=== PATIENT | female | born 1995 | race Caucasian/White ===

== ENCOUNTER → 2017-05-30 14:54 | Outpatient (CLI) | payer MEDICAID, SELFPAY ==
[2017-06-02 13:01] LABS: HPV Reflexed? NOT INDICATED
== END ==
PROVIDERS: Visit Provider Obstetrics & Gynecology
DX: Z12.4 Encounter for screening for malignant neoplasm of cervix (principal)
CPT/HCPCS: 88175; G0145

== ENCOUNTER → 2018-12-19 15:15 | Outpatient (CLI) | payer MEDICAID, SELFPAY ==
[2014-10-08 20:22] VITALS: BMI 18.4
[2018-12-19 17:28] LABS: Chlamydia Trachomatis by PCR Negative (Negative); Neisserai gonorrhoeae by PCR Negative (Negative); Probe Check PASS; Sample Adequacy Control PASS; Specimen Processing Control PASS
== END ==
PROVIDERS: Visit Provider Obstetrics & Gynecology
DX: Z11.3 Encounter for screening for infections with a predominantly sexual mode of transmission (principal)
CPT/HCPCS: 87491; 87591

== ENCOUNTER → 2019-01-16 10:11 | Outpatient (CLI) | payer MEDICAID, SELFPAY ==
[2014-10-08 20:22] VITALS: BMI 18.4
[2019-01-16 10:47] LABS: Color, Urine Yellow (Yellow); Glucose, Dipstick Normal (Normal); Ketone-Dipstick Negative (Negative); Leukocyte Esterase-Dipstick Negative /ul (Negative); Nitrite-Dipstick Negative (Negative); Occult Blood-Urine Negative /ul (Negative); Protein-Dipstick Negative (Negative); Urine Bilirubin Dipstick Negative (Negative); Urine Clarity Clear (Clear); Urine Urobilinogen Normal (Normal)
[2019-01-16 10:52] LABS: Absolute Lymphocyte Count 1.36 X10^3/uL (0.83-4.51); Absolute Neutrophil Count 7.7 X10^3/uL (2.0-7.7); Basophil# 0.04 X10^3/uL; Basophil% 0.4 % (0-1); Eosinophil# 0.07 X10^3/uL; Eosinophils% 0.7 % (0-5); Hematocrit 36.4 % (37-47); Hemoglobin 11.9 g/dL (12.0-15.0); Lymphocyte # 1.36 X10^3/ul (4.0); Lymphocyte % 13.8 % (19-41); Mean Corp Hgb Conc 32.7 g/dL (32-36); Mean Corpuscular Hgb 28.5 pg (27.0-32.0); Mean Corpuscular Volume 87.3 fL (81-99); Monocyte# 0.71 X10^3/uL; Monocyte% 7.2 % (0-10); NRBC Flagged by Analyzer 0 % (0-5); Neutrophil # 7.65 X10^3/uL (2.7-7.7); Neutrophil % 77.5 % (47-70); Platelet Count 273 K/mm3 (150-450); RBC Distribution Width CV 13.8 % (11.6-14.6); Red Blood Count 4.17 M/mm3 (4.2-5.4); White Blood Count 9.9 K/mm3 (4.4-11.0)
[2019-01-16 11:01] LABS: Amphetamine Urine VISTA NEGATIVE (<1000 ng/mL); Barbiturate Urine VISTA NEGATIVE (< 200 ng/mL); Benzodiazepine Urine VISTA NEGATIVE (< 200 ng/mL); COTININE Drug Screen Negative (<200 ng/mL); Cocaine Urine VISTA NEGATIVE (< 300 ng/mL); Ecstacy Urine VISTA NEGATIVE (< 500 ng/mL); Methadone Urine VISTA NEGATIVE (< 300 ng/mL); PCP Urine VISTA NEGATIVE (< 25 ng/mL); THC Urine VISTA NEGATIVE (< 50 ng/mL); Vista UDS pH Range 7
[2019-01-16 11:24] LABS: Thyroid Stim Hormone (TSH) 1.35 uIU/mL (0.358-3.74)
[2019-01-16 12:49] LABS: HIV - WCH Non-Reactive (Nonreactive); Hepatitis B Surface Antigen Non-Reactive (Nonreactive); Hepatitis C Antibody Non-Reactive (Nonreactive)
[2019-01-18 02:37] LABS: Prenatal RPR NONREACTIVE (NONREACTIVE)
== END ==
PROVIDERS: Visit Provider Advanced Practice Midwife
DX: Z34.81 Encounter for supervision of other normal pregnancy, first trimester (principal)
CPT/HCPCS: 36415; 80307; 81002; 84443; 85025; 86703; 86762; 86803; 87340

== ENCOUNTER → 2019-05-27 10:11 | Outpatient (CLI) | payer MEDICAID, SELFPAY ==
[2019-05-27 10:55] LABS: Hematocrit 30.6 % (37-47); Hemoglobin 9.9 g/dL (12.0-15.0); Mean Corp Hgb Conc 32.4 g/dL (32-36); Mean Corpuscular Hgb 29.1 pg (27.0-32.0); Platelet Count 319 K/mm3 (150-450); RBC Distribution Width CV 14.8 % (11.6-14.6); RBC Distribution Width SD 47.8 fl (35.1-43.9); White Blood Count 11.5 K/mm3 (4.4-11.0)
[2019-05-27 11:15] LABS: Glucose Challenge Gest 1H 50g 127 mg/dL (70-140)
== END ==
PROVIDERS: Visit Provider Obstetrics & Gynecology
DX: Z34.82 Encounter for supervision of other normal pregnancy, second trimester (principal)
CPT/HCPCS: 36415; 82950; 85027

== ENCOUNTER → 2019-07-30 14:14 | Outpatient (CLI) | payer MEDICAID, SELFPAY ==
[2014-10-08 20:22] VITALS: BMI 18.4
== END ==
PROVIDERS: Referring Provider Obstetrics & Gynecology; Visit Provider Obstetrics & Gynecology
DX: Z36.85 Encounter for antenatal screening for Streptococcus B (principal)
CPT/HCPCS: 87081

== ENCOUNTER 2019-08-26 19:25 | Inpatient (IN) | payer MEDICAID, SELFPAY ==
[2019-08-26] VITALS (22 sets, daily range): BP systolic 89–135; BP diastolic 52–77; PULSE 73–96; TEMP 36.4–37.1; O2SAT 98–99; BMI 27.6
[2019-08-26] MEDS: Lactated Ringers 1,000 ML 50 ML IV (19:50)
[2019-08-26 20:05] LABS: Absolute Lymphocyte Count 1.96 X10^3/uL (0.83-4.51); Absolute Neutrophil Count 7.9 X10^3/uL (2.0-7.7); Basophil# 0.04 X10^3/uL; Basophil% 0.4 % (0-1); Eosinophil# 0.09 X10^3/uL; Eosinophils% 0.8 % (0-5); Hematocrit 35.5 % (37-47); Hemoglobin 11.8 g/dL (12.0-15.0); Lymphocyte # 1.96 X10^3/ul (4.0); Lymphocyte % 17.9 % (19-41); Mean Corp Hgb Conc 33.2 g/dL (32-36); Mean Corpuscular Hgb 30.1 pg (27.0-32.0); Mean Corpuscular Volume 90.6 fL (81-99); Mean Platelet Vol. 10.3 fl (6.2-12.0); Monocyte# 0.79 X10^3/uL; Monocyte% 7.2 % (0-10); NRBC Flagged by Analyzer 0 % (0-5); Neutrophil % 72.4 % (47-70); Platelet Count 269 K/mm3 (150-450); RBC Distribution Width CV 14.6 % (11.6-14.6); RBC Distribution Width SD 48.4 fl (35.1-43.9); Red Blood Count 3.92 M/mm3 (4.2-5.4); White Blood Count 10.9 K/mm3 (4.4-11.0)
--- NOTE | 2019-08-26 20:18 | HP.PCM_ITS ---
- Problem List (1) 40 weeks gestation of Status: Acute History Date of Admission: 08/26/19 Final ELYSE: 08/23/19 Final ELYSE Source: US <20 weeks Gestational age: 40 Weeks and 3 Days History of this : This is a 23 year-old, G [2], P [1], at 40w3d gestational age. Allergies No Known Allergies Allergy (Unverified 11/19/13 17:45) Home Medications: Home Medications Ferrous Sulfate 325 mg PO DAILY 11/19/13 Vits [Prenatabs FA ] 1 tab PO DAILY 11/19/13 Smoking Status: Never smoker Alcohol: None Number of Fetus(es): 1 NST - FHR Rate Baby A Baseline: 140 Variability:: Moderate Accelerations:: 15 x 15 Decelerations:: None NST Reactive:: Yes FHR Category:: Category I Uterine Activity:: 06/03 History Past Pregnancies: Past Pregnancies Delivery Date Name GA/ Weeks Outcome Route Wt Sex Labor Length Anesthesia Delivery Location Provider FOB 10/2013 Mary Ellen 39 Living 7lb 2 oz F 22 Epidural [facility] Expected Delivery Method: Spontaneous Vaginal Physical Exam Vitals: Vital Signs Temp Pulse BP Pulse Ox 98.8 F 79 124/71 H 98 08/26/19 19:11 08/26/19 19:11 08/26/19 19:11 08/26/19 19:11 Assessment/Plan All Active Problems 40 weeks gestation of (Acute) This is a 23 year-old, G [2], P [1], at 40.3 weeks gestational age in labor, Cat I FHR = Procedure Criteria Procedure Type: Essential Procedure Essential: Yes Criteria Statement: On 06/11/2019 the [place] Department of Health ([facility]) Public Order signed by [facility] Director Mirian Arredondo M.D., regarding the Management of Non-Essential Surgeries and Procedures for the purpose of preserving Personal Protective Equipment (PPE) and critical hospital capacity and resources within [place] went into effect as of 06/12/2019 at 5:00PM. According to the [facility] Public Order: This action will remain in full force and effect until the State of Emergency declared by the Governor no longer exists or the Director of the [facility] rescinds or modifies this Order. This [facility] order stated all non-essential or elective surgeries and procedures that utilize PPE should be delayed unless there is undue risk to the current or future health of a patient. After reviewing the aforementioned [facility] Public Order and the patient's clinical case, I have determined that the scheduled procedure meets the criteria to go forward. Risk to Patient if Procedure Delayed: Threat to patient's life if surgery or procedure is delayed
[2019-08-26] MEDS: Lactated Ringers 500 ML 999 ML IV (22:25)
[2019-08-26] MEDS: fentaNYL-bupivacaine (epidural) 100 ML BAG EPIDURAL (23:33)
[2019-08-27] VITALS (37 sets, daily range): BP systolic 89–131; BP diastolic 51–76; PULSE 66–100; RESP 16–18; TEMP 36.6–38.3; O2SAT 96–100
[2019-08-27] MEDS: Oxytocin 30 units/NS 500 ml 30 UNITS/500 ML IV.SOLN IV (02:45)
[2019-08-27] MEDS: Lactated Ringers 1,000 ML 200 ML IV (03:19)
[2019-08-27] MEDS: fentaNYL-bupivacaine (epidural) 100 ML BAG EPIDURAL (04:39)
[2019-08-27] MEDS: Lactated Ringers 500 ML 999 ML IV ×2 (05:32)
[2019-08-27] MEDS: Oxytocin 30 units/NS 500 ml 30 UNITS/500 ML IV.SOLN 334 UNITS IV (06:50)
--- NOTE | 2019-08-27 08:32 | PCM.OPRPT ---
Problem List (1) 40 weeks gestation of Status: Acute Vaginal Delivery Maternal Presentation: Active Labor Amniotic Membrane Rupture Type: Spontaneous Rupture of Membrane time: 0504h 08/27/19 Amniotic Fluid Description: Moderate meconium Final ELYSE: 08/23/19 Final ELYSE Source: US <20 weeks Gestational age: 40 Weeks and 4 Days doctor who attended delivery (if requested by OB): Shweta Mcbride Date of Procedure: 08/27/19 Pre-Operative Diagnosis: 40w4d gestation, meconium, recurrent decelerations Post-Operative Diagnosis: 40w4d gestation, meconium, recurrent decelerations Surgery/ Procedure Performed: Vacuum Assisted Vaginal Delivery Anesthesiologist: Michael Colbert Type of Anesthesia: Epidural Description of Procedure: Patient was FD/0 station on my initial arrival with Category II FHR, moderate variability with presence of recent prolonged deceleration nadiring to 90s bpm now recovered to baseline. She pushed with intermittent variable decelerations for approximately 1 hour with the nursing staff and again prolonged decelerations occurred. I returned to the bedside and exam FD/+2. I pushed with the patient over approximately 10 minutes, however given FHR tracing I advised vacuum assistance, reviewing associated risks and benefits. Patient desired to proceed. Fetus direct OA. The Kiwi cap was placed at the flexion point and suction applied to 500mmHg. With three pulls over 3 pushes the head delivered. There were no pop-offs. Suction was released and vacuum cap removed. The mouth and nares were bulb suctioned on the perineum. shoulders delivered with ease to reveal a female . The infant was placed on the maternal abdomen. The cord was doubly clamped and cut at approximately 60 minutes of life and further attended by nursery personnel and the Pediatric Hospitalist for decreased respiratory effort. Cord gases and cord blood was obtained. The placenta delivered spontaneously and appeared intact on inspection. The perineum and vagina were intact. Sponge counts correct x 2. Presentation: Vertex Placental Delivery Description: Spontaneous Placenta Disposition: [facility] Cord Vessel Description: 3 Vessels Nuchal Cord Compression: Without compression Cord Gases drawn per routine: ABG, VBG Cord Entanglement: None Drain: Bell to straight drain Estimated Blood Loss: 300 ml A gender: Female (1 minute): 6 (5 minute): 9 Episiotomy Description: None Laceration: None Medications given after delivery: IV Pitocin Complications: None
[2019-08-27] MEDS: Prenatal Vits Tablet 1 TABLET PO (18:45)
[2019-08-28 03:50] VITALS: BP 120/71; PULSE 83; RESP 18; TEMP 37.8; O2SAT 99
[2019-08-28 03:51] VITALS: TEMP 37.5
[2019-08-28 03:54] VITALS: BP 120/71; PULSE 83; O2SAT 97
[2019-08-28 08:15] VITALS: BP 115/75; PULSE 92; RESP 14; TEMP 37.4
--- NOTE | 2019-08-28 08:24 | PCM.PN.OB ---
Patient Problems: Active and Suspected Problems 40 weeks gestation of (Acute) Subjective: Feeling well and rested. Mild vaginal pain, but controlled with ice and Motrin. Mild cramping with , but daughter is feeding well with nipple shield. Denies heavy bleeding. Passing flatus and urinating without difficulty. Objective: VSS. Fundus is firm, midline, u/2. Lochia rubra moderate. - Physical Exam Vitals/I&O's: Vital Signs Temp Pulse Resp BP Pulse Ox 99.5 F H 83 18 120/71 97 08/28/19 03:51 08/28/19 03:54 08/28/19 03:50 08/28/19 03:54 08/28/19 03:54 Oxygen Delivery Method Room Air Weight: 59.9 kg Body Mass Index (BMI) 27.6 Intake and Output for Last 24 Hours 08/26/19 08/27/19 08/28/19 23:59 23:59 23:59 Intake Total 687.5 / 687.5 2756.28 / 2756.28 Output Total 2200 / 2200 Balance 687.5 / 687.5 556.28 / 556.28 General: Alert, Oriented x3, Cooperative HEENT: Atraumatic, PERRLA, EOMI, Normocephalic Neck: Supple, No JVD, Negative Carotid Bruits Lungs: Clear to auscultation, Normal air movement Cardiovascular: Regular rate, No murmurs Abdomen: Bowel Sounds Present, Soft, Non Tender Extremities: No edema, Capillary Refill Less than 3 Seconds Skin: No rashes, No breakdown Musculoskeletal: No Tenderness to Palpation of Joints or Extremities Neurological: Cranial nerves II-XII grossly intact Psych/Mental Status: Normal Affect, Appropriate Current Medications Acetaminophen (Tylenol) 325 - 650 mg PO Q4H PRN PRN PRN Reason: Pain Score 1-3/10 Bisacodyl (Dulcolax) 10 mg RECTAL UD PRN PRN Reason: If no BM Dibucaine (Dibucaine) 1 applic TOPICAL TID PRN PRN; Protocol PRN Reason: Discomfort Hydrocortisone (Hytone) 1 applic TOPICAL TID PRN PRN; Protocol PRN Reason: Discomfort Ibuprofen (Motrin) 600 mg PO Q6H PRN PRN PRN Reason: Pain Score 1-3/10 Methylergonovine Maleate (Methergine) 0.2 mg IM X1 PRN PRN Reason: Excess bleeding/uterine atony Ondansetron HCl (Zofran) 4 mg IV Q4H PRN PRN PRN Reason: NAUSEA Multivit/Folic Acid/Iron (Prenatabs Fa) 1 tablet PO DAILY@1200 LAURA Last Admin: 08/27/19 18:45 Dose: 1 tablet Documented by: Senna/Docusate Sodium (Senokot-S, Diane-Colace) 1 - 2 tablet PO DAILY PRN PRN PRN Reason: Constipation Simethicone (Mylicon) 80 mg PO PCHS PRN PRN Reason: Indigestion/Stomach pain Sodium Chloride () 5 - 15 ml IV UD PRN PRN Reason: SALINE FLUSH Medical Necessity - Tobacco Use Smoking Status: Never smoker Assessment/Plan All Active Problems 40 weeks gestation of (Acute) This is a 23 year-old, G [2], P [2], PPD#1 s/p VAVD doing well. -Rh positive - -Dyad stable -Educated on signs of depression and when to call -Discharge home today with 6 week follow up
--- NOTE | 2019-08-28 08:27 | DCINST_ITS ---
Discharge Diet: No Restrictions Discharge Activity: Return to Normal Activity, May not drive while taking narcotic pain medications., May Shower May resume sexual activity in: 4-6 weeks Additional Activity Instructions:: Nothing in the vagina for 4-6 weeks. You may return to work/school in 6 weeks. Call your doctor if your incision/area has: Continuous Slow Oozing, Sudden Increased Bleeding, Increased Pain/ Swelling, Increased Redness, Foul Smelling Discharge Additional Instructions: If you experience any of the following, contact your healthcare provider. * Bleeding that soaks a pad every hour for 2 hours * Fever 100.4 or higher * Unrelieved incision or abdominal pain * Swelling, redness, discharge or bleeding from your incision or episiotomy site * Your incision begins to separate * Problems urinating (including inability to urinate or burning while urinating). * Visual changes * Severe headache * Flu-like symptoms * Pain or redness in one of both of your breasts * Pain, warmth, tenderness or swelling in your legs, especially the calf area * Frequent nausea and vomiting * Symptoms of depression or anxiety If you experience any of the following, call 911 or go to the nearest Emergency Room. * Chest pain * Problems breathing * Seizure activity * Partial or complete paralysis of a body part, slurred speech, weakness or drooping of the face, or a sudden inability to walk or hold your balance Allergies/Adverse Reactions: Allergies No Known Allergies Allergy (Unverified 11/19/13 17:45) Medications to take at Discharge Ferrous Sulfate 325 mg PO DAILY 11/19/13 Vits [Prenatabs FA ] 1 tab PO DAILY 11/19/13 Please Follow Up With: Stacey Mcbride MD When: Call to make an appointment with your doctor in 6 weeks. If you have signs of depression, to call immediately. Test Results: Test results from this visit will be discussed in further detail at your follow- up appointment, if applicable.
[2019-08-28 08:28] VITALS: BP 115/75; PULSE 92
== END 2019-08-28 12:00 | disposition home or self-care (01) | DRG 560 ==
LOC: WPOUT 19:30 → WP 19:30
PROVIDERS: Admitting Provider Obstetrics & Gynecology; Visit Provider Obstetrics & Gynecology
DX: O76 Abnormality in fetal heart rate and rhythm complicating labor and delivery (principal); Z37.0 Single live birth; Z3A.40 40 weeks gestation of pregnancy; O77.0 Labor and delivery complicated by meconium in amniotic fluid
CPT/HCPCS: 59025; 59050; 85025; 86850; 86900; 86901; 99218; J7120; G0378

== ENCOUNTER 2019-08-29 18:22 | Emergency (ER) | payer MEDICAID, SELFPAY ==
[2019-08-26 20:07] VITALS: BMI 27.6
[2019-08-29 18:22] VITALS: BP 111/53; PULSE 118; RESP 16; TEMP 36.5; O2SAT 96; BMI 25.7
[2019-08-29 18:56] VITALS: BP 111/53; PULSE 101; RESP 14; TEMP 36.5; O2SAT 97
[2019-08-29] MEDS: 0.9% Normal Saline 1,000 ML 150 ML IV (19:08)
[2019-08-29 19:11] LABS: Absolute Lymphocyte Count 1.59 X10^3/uL (0.83-4.51); Absolute Neutrophil Count 14.9 X10^3/uL (2.0-7.7); Basophil# 0.06 X10^3/uL; Basophil% 0.3 % (0-1); Eosinophil# 0.16 X10^3/uL; Eosinophils% 0.9 % (0-5); Hematocrit 34.3 % (37-47); Hemoglobin 11.4 g/dL (12.0-15.0); Lymphocyte # 1.59 X10^3/ul (4.0); Lymphocyte % 8.6 % (19-41); Mean Corp Hgb Conc 33.2 g/dL (32-36); Mean Corpuscular Hgb 29.7 pg (27.0-32.0); Mean Corpuscular Volume 89.3 fL (81-99); Mean Platelet Vol. 9.9 fl (6.2-12.0); Monocyte# 1.72 X10^3/uL; Monocyte% 9.3 % (0-10); NRBC Flagged by Analyzer 0 % (0-5); Neutrophil # 14.89 X10^3/uL (2.7-7.7); POSITIVE DIFFERENTIAL YES; Platelet Count 249 K/mm3 (150-450); RBC Distribution Width CV 14.6 % (11.6-14.6); RBC Distribution Width SD 47.8 fl (35.1-43.9); Red Blood Count 3.84 M/mm3 (4.2-5.4); White Blood Count 18.6 K/mm3 (4.4-11.0)
[2019-08-29 19:20] LABS: Anion Gap 6 (5-15); BUN 10 mg/dL (7-18); BUN/Creat Ratio 21.3 RATIO (10-20); Calcium,Total 8.2 mg/dL (8.5-10.1); Chloride 108 mmol/L (98-107); Creatinine, Serum 0.47 mg/dL (0.55-1.02); Differential Indicated SCAN CRITERIA MET; EST Glomerular Filtration Rate 171 mL/min (>60); Est Glom Filt Rate - Afr Amer 206 mL/min (>60); Estimated Creatinine Clearance 160.89 ml/min; Glucose 100 mg/dL (74-106); Potassium 3.3 mmol/L (3.5-5.1); Sodium Level 138 mmol/L (136-145)
[2019-08-29 19:39] LABS: Anisocytosis RARE; Platelet Estimate ADEQUATE (ADEQ); Red Cell Morphology N CHROM NORMAL (NORM C&C)
[2019-08-29 19:40] LABS: Lactic Acid 0.8 mmol/L (0.4-1.9)
--- NOTE | 2019-08-29 19:45 | RAD_ITS ---
STUDY: X-RAY CHEST REASON FOR EXAM: Female, 23 years old. Fever, patient 2 days post vaginal delivery TECHNIQUE: Single frontal view of the chest. COMPARISON: None. FINDINGS: Cardiac silhouette unremarkable. Pulmonary vascularity unremarkable. Aorta unremarkable. No focal airspace opacities. No pleural effusions. Upper abdomen unremarkable. Osseous structures intact. No pneumothorax. RAD/Chest 1 View (Portable) IMPRESSION: No acute cardiopulmonary findings Electronically Signed: Ivan Hill, at 20:30 EDT Tel , Service support ,
--- NOTE | 2019-08-29 20:00 | US_ITS ---
STUDY: ULTRASOUND OF THE FEMALE PELVIS - COMPLETE REASON FOR EXAM: Female, 23 years old. FEVER 2 DAYS POST LMP: TECHNIQUE: Transabdominal TECHNICAL QUALITY: Adequate. COMPARISON: None. FINDINGS: The uterus is anteverted and is in a midline position. The uterus measures 17.7 x 12.6 x 7.7 cm. Normal uterine cervix. The endometrium measures 4 mm in thickness, and is hyperechoic. There is no demonstrated endometrial mass. There is a tiny fluid collection in the lower uterine endometrial canal. There is no demonstrated myometrial mass. I.U.D. - The patient does not have an I.U.D. The right ovary is visualized. The right ovary measures 4.5 x 2.0 x 1.2 cm. There is no right ovarian cyst or ovarian mass. There is no visualized right adnexal mass or complex lesion. There is normal arterial and normal venous vascularity. The left ovary is visualized. There is no fluid in the cul-de-sac. The pre void volume of the bladder was 313 ml. . Polycystic ovary disease: No. US/Pelvic (Non ) IMPRESSION: Enlarged uterus consistent with history of recent delivery. tiny amount of fluid in the lower uterine segment endometrial canal. There is no fluid in the cul-de-sac. The right ovary appears normal. The left ovary is not visualized. Electronically Signed: Marty Hendricks MD at 21:00 EDT , Service support ,
[2019-08-29 20:21] LABS: Bacteria 0 SEEN /hpf (None Seen); Mucous, Urine 0 SEEN /hpf (<or=2+)
[2019-08-29 20:23] LABS: Color, Urine Yellow (Yellow); Glucose, Dipstick Normal (Normal); Ketone-Dipstick Negative (Negative); Leukocyte Esterase-Dipstick 25 /ul (Negative); Nitrite-Dipstick Negative (Negative); Occult Blood-Urine 150 /ul (Negative); Protein-Dipstick 15 mg/dl (Negative); Specific Gravity, Urine 1.005 (1.002-1.030); Urine Bilirubin Dipstick Negative (Negative); Urine Clarity Clear (Clear); Urine Urobilinogen Normal (Normal)
[2019-08-29 20:29] LABS: Squamous Epithelial Cells - UA 0-5 SEEN /hpf (5-10)
[2019-08-29 20:30] LABS: Red Blood Cells-Urine 0-5 SEEN /hpf (0-5); White Blood Cells 0-5 SEEN /hpf (0-5)
[2019-08-29 20:32] LABS: Transitional Epithelial - Ur 0-5 SEEN /hpf (0-5)
--- NOTE | 2019-08-29 21:23 | ED.VISSUMM ---
- ER Visit Summary Date of Service: 08/29/19 Chief Complaint: [Fever] History of Present Illness: The patient is a 23 F [presents to the emergency department with a fever that started yesterday. Patient states it tends to come and go. Temperature up to 103.5. Patient denies any other symptoms with this. She is day 2. She denies any nausea or vomiting. She denies diarrhea. Denies sore throat or cough. She denies urinary symptoms. She denies any abdominal pain. Patient states that her vaginal bleeding has actually decreased and she denies any abnormal or foul odor.] She denies any excessive breast tenderness or redness or warmth. Physical Examination: HEENT-PERRLA, EOMI. Cranial nerves II through XII grossly intact. TMs clear. Mucous membranes moist. No adenopathy. Cardiovascular-regular rate and rhythm without murmur or ectopy Lungs-clear to auscultation, chest wall stable without crepitus or subcu emphysema Breast exam-no evidence of mastitis. The breasts are engorged. Abdomen-normoactive bowel sounds, soft, nontender, no rebound or rigidity, no peritoneal signs. Extremities-intact ?4, normal range of motion, normal pulses, atraumatic [] Test Results: [CBC with differential obtained showed a white count of 18.6, hemoglobin 11.4, hematocrit 34, placed 249. Chemistries unremarkable. Her potassium was just slightly low at 3.3. Lactate was normal at 0.8. Urinalysis was unremarkable. Blood cultures ordered and pending. Chest x-ray showed nothing acute. Pelvic ultrasound obtained showed enlarged uterus consistent with recent delivery and small amount of fluid in the endometrial canal otherwise nothing significant.] Emergency Department Course and Treatment: Case discussed with patient's [employer] Dr. Nohemy Ramírez. I will empirically start patient on Keflex as the etiology of her fever is unclear. Concerned about possibility of early mastitis. [] Treatment Plan: Follow-up with [employer] within next 3 to 5 days. Advised to return if fever, vomiting, shortness of breath, or condition should worsen anyway. [] Disposition: [Discharged home in stable condition] Impression: [Fever-etiology uncertain] This note was generated with [employer] dictation software. It may contain incorrect words, spelling, and punctuation that were not noted in review of the chart prior to signing ED Disposition - Plan for ED Patient: Referrals: Care Physician,No Primary [Primary Care Provider] -
--- NOTE | 2019-08-29 21:27 | ED.DEP ---
ED Disposition - Plan for ED Patient: Instructions: ED FUO Adult Prescriptions: Cephalexin [Keflex] 500 mg PO Q6 #40 cap Prescription Printed Referrals: Care Physician,No Primary [Primary Care Provider] - Stacey Bean MD [STAFF PHYSICIAN] - 3-5 Days
[2019-08-29] MEDS: Cephalexin 250 MG Capsule 500 MG PO (22:21)
[2019-09-02 12:06] LABS: Pathologist Review Reviewed
== END 2019-08-29 22:22 | disposition home or self-care (01) ==
LOC: ED 19:21
PROVIDERS: Emergency Provider Emergency Medicine
DX: R50.9 Fever, unspecified (principal)
CPT/HCPCS: 71045; 76856; 80048; 81001; 83605; 85025; 87040; 87635; 96360; 96361; 99285; G2023; P9612; U0003

== ENCOUNTER → 2020-11-10 | Outpatient (CLI) | payer MEDICAID, SELFPAY ==
[2020-11-12 13:01] LABS: HPV Reflexed? NOT INDICATED
== END | disposition home or self-care (01) ==
LOC: LABSPEC 11:52
PROVIDERS: Visit Provider Obstetrics & Gynecology
DX: Z12.4 Encounter for screening for malignant neoplasm of cervix (principal)
CPT/HCPCS: 88175; G0145

== ENCOUNTER → 2021-01-14 12:46 | Outpatient (CLI) | payer MEDICAID, SELFPAY ==
[2021-01-16 09:08] LABS: Chlamydia By Nucleic Acid AMP Negative (Negative)
[2021-01-16 13:52] LABS: Gonococcus By Nucleic Acid AMP Negative (Negative)
== END ==
PROVIDERS: Visit Provider Obstetrics & Gynecology
DX: Z11.3 Encounter for screening for infections with a predominantly sexual mode of transmission (principal)
CPT/HCPCS: 87491; 87591